=== PATIENT | male | born 1960 | race Caucasian/White ===

== ENCOUNTER 2021-02-02 12:59 | Emergency (ER) | payer OTHER ==
[~2021-02-02] VITALS: Ht 180.3 cm; Wt 82.6 kg
[2021-02-02 13:02] VITALS: BP 144/90
--- NOTE | 2021-02-02 13:05 | NUR ---
Dr. Lees is evaluating patient at bedside.
--- NOTE | 2021-02-02 13:10 | NUR ---
61 y/o M brought in from home by neighbor with c/c seizure. Per neighbor, patient was at home and had an unwitnessed seizure of unknown duration. Patient presents to ER A&Ox2 to name and place. Patient reports not remembering the incident, however, was able to provide that he has a history of seizures. Patient states last seizure was "a couple months ago." Patient presents without oral trauma, denies any N/V, dizziness, headache, SOB, CP, recent falls/injury to head/neck/back. No trauma or injury noted. Seizure precautions in place by EMT. patient monitor in place; VSS. Respirations even/unlabored. Pupils 2mm PERRLA. Bed locked in lowest position, side rails x 1, call light in reach. Medication: levetiracetam, Lamotrigine, Atorvastatin obtained from medical ID [email or web address]. PMH: Epilepsy, HLD NKA Sx: "Brain tumor sx"
--- NOTE | 2021-02-02 13:12 | NUR ---
Patient ambulated to bed 11.
[2021-02-02] MEDS ORDERED: levETIRAcetam 1,000 MG in NACL 0.9% 100 ML IV ONE (13:15)
--- NOTE | 2021-02-02 13:21 | NUR ---
Patient transported o CT via wheelchair.
--- NOTE | 2021-02-02 13:25 | NUR ---
Blood sample collected, handed to CPT Brianna at ER bedside.
[2021-02-02 13:38] LABS: BASOPHILS % (AUTO) 0.4 % (0.0-2.0); EOSINOPHILS # (AUTO) 0.2 K/uL (0-0.4); EOSINOPHILS % (AUTO) 3.1 % (0.0-4.0); HEMATOCRIT 44.2 % (36-52); HEMOGLOBIN 15.3 g/dL (12.0-18.0); LYMPHOCYTES # (AUTO) 2.2 K/uL (2.0-11.5); LYMPHOCYTES % (AUTO) 29.6 % (20.5-51.1); MEAN CORPUSCULAR HEMOGLOBIN 31 pg (27-31); MEAN CORPUSCULAR HGB CONC 35 g/dL (33-37); MEAN CORPUSCULAR VOLUME 88.4 fL (80-94); MONOCYTES # (AUTO) 0.4 K/uL (0.8-1.0); MONOCYTES % (AUTO) 5.6 % (1.7-9.3); NEUTROPHILS # (AUTO) 4.5 K/uL (1.8-7.7); NEUTROPHILS % (AUTO) 61.3 % (42.2-75.2); PLATELET COUNT (AUTO) 224 K/uL (140-450); RED CELL DISTRIBUTION WIDTH 13.3 % (11.6-13.7); WHITE BLOOD COUNT (AUTO) 7.4 K/uL (4.8-10.8)
--- NOTE | 2021-02-02 13:38 | NUR ---
Patient returned from CT via gurney. Placed back onto residential monitor. Bed locked in lowest position, side rails x 1, call light in reach.
--- NOTE | 2021-02-02 13:40 | NUR ---
EMT at bedside for EKG
[2021-02-02 13:54] LABS: ANION GAP 12.4 (8-16); CARBON DIOXIDE 27.2 mmol/L (21-32); CREATININE 1.1 mg/dL (0.6-1.3); POTASSIUM 3.6 mmol/L (3.5-5.1)
[2021-02-02] MEDS ORDERED: levETIRAcetam 1,000 MG in NACL 0.9% 100 ML IV SCH (14:00)
--- NOTE | 2021-02-02 14:10 | NUR ---
Dr. Lees is reevaluating patient at bedside
--- NOTE | 2021-02-02 14:10 | NUR ---
Patient presents A&Ox3, provided Dr. Lees with PCP information and contacted Pako (brother) with status update.
--- NOTE | 2021-02-02 14:48 | NUR ---
Patient resting in semi-fowlers at this time. Able to answer to name/place/year. 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 Respirations even/unlabored. All pt needs met at this time.
--- NOTE | 2021-02-02 14:54 | NUR ---
Tamia abrams swab collected, walked to lab and handed to CPT. Alan
--- NOTE | 2021-02-02 15:30 | NUR ---
Patient to be transferred to [facility] ER. Is being transferred due to higher level of care - neurologist. Receiving facility has accepting physician and available space. ER physician has signed transfer form. Patient or responsible alliance party has agreed to transfer and signed form. Patient belongings inventoried and will be sent with patient. Copy of nursing notes, lab reports, EKG, Physicians Orders and X-rays to be sent with patient. Report called to MELO Kitchen at receiving facility. [facility] ambulance service has been called for transfer. ETA is 10 minutes.
--- NOTE | 2021-02-02 15:35 | NUR ---
Report given to MELO Kitchen at [facility]. All questions answered.
--- NOTE | 2021-02-02 15:40 | NUR ---
[facility] at bedside for transport
[2021-02-02 15:43] VITALS: BP 143/92
== END 2021-02-02 15:42 | disposition short-term general hospital (02) ==
LOC: MED 12:59
DX: R56.9 Unspecified convulsions (principal); G93.6 Cerebral edema; Z20.822 Contact with and (suspected) exposure to COVID-19
CPT/HCPCS: 36415; 70450; 80048; 84484; 85025; 87426; 93005; 96365; 99284; J1953